=== PATIENT | female | born 1980 | race American Indian/Alaskan Native ===

== ENCOUNTER 2022-07-24 22:04 | Emergency (ER) | payer OTHER ==
[2022-07-25] MEDS ORDERED: dexAMETHasone 20 MG/5 ML VIAL IV ONE (07:57)
[2022-07-25] MEDS ORDERED: METOCLOPRAMIDE 10 MG/2 ML INJ IV ONE (07:57)
[2022-07-25] MEDS ORDERED: SODIUM CHLORIDE 0.9% 1000 ML 1,000 ML IV ONE (07:57)
[2022-07-25] MEDS ORDERED: diphenhydrAMINE 50 MG/ML VIAL IV ONE (07:57)
[2022-07-25 08:49] LABS: Hematocrit 36.8 % (30.3-42.9); Hemoglobin 11.8 gm/dl (10.1-14.3); Mean Corpuscular HGB Conc 32 % (30-34); Platelet Count 331 K/mm3 (140-440); Red Blood Count 5.27 M/mm3 (3.65-5.03); Red Cell Distribution Width 17.5 % (13.2-15.2)
[2022-07-25 08:50] LABS: Mean Corpuscular Volume 70 fl (79-97)
[2022-07-25 09:15] LABS: Alanine Aminotransferase 12 units/L (7-56); Albumin 4.7 g/dL (3.9-5); BUN/Creatinine Ratio 13; Blood Urea Nitrogen 10 mg/dL (7-17); Calcium 9.3 mg/dL (8.4-10.2); Hemolysis Index 10
[2022-07-25 09:56] LABS: Mucus,Urine FEW /HPF; RBC,Urine < 1.0 /HPF (0.0-6.0); WBC,Urine < 1.0 /HPF (0.0-6.0)
[2022-07-25 09:59] LABS: Color,Urine Straw (Yellow)
[2022-07-25] MEDS ORDERED: BUTALB/ACETAMINOPHEN/CAFFEINE TAB PO ONE (10:55)
[2022-07-25] MEDS ORDERED: PROCHLORPERAZINE EDISYLATE 10 MG/2 ML VIAL IV ONE (10:55)
--- NOTE | 2022-07-25 10:56 | Emergency Department Report ---
ED Headache HPI - General Chief Complaint: Dizziness Stated Complaint: LIGHT HEADED/DIZZINESS Time Seen by Provider: 07/25/22 07:12 - History of Present Illness Initial Comments: 42-year-old black female with a past medical history of sickle cell disease, Mjplj-[id number] status post ablation, and asthma presents to the emergency department for evaluation of 3-day history of headache with intermittent dizziness and nausea and vomiting. She states that symptoms are worse when she is lying down. She states that she took a home COVID test but it was negative. She states that headache at its worst is 7 out of 10. She denies vision changes and photophobia. Patient also states that she has been having generalized body aches and thinks that she may be going into a sickle cell crisis. Timing/Duration: other (4 days) Quality: moderate Head Injury Location: frontal Associated Symptoms: nausea/vomiting. denies: fatigue, facial pain, fever/chills, flushing, loss of consciousness, nasal congestion, nasal drainage, numbness in legs/feet, rash, seizures, sinus infection, stiff neck, vision changes, weakness Allergies/Adverse Reactions: Allergies aspirin Allergy (Verified 07/25/22 00:06) Unknown butorphanol [From Stadol] Allergy (Verified 07/25/22 00:06) Unknown ketorolac [From Toradol] Allergy (Verified 07/25/22 00:06) Unknown latex Allergy (Verified 07/25/22 00:06) Unknown Home Medications: Ambulatory Orders Acetaminophen/Codeine [Tylenol /Codeine # 3 tab] 1 tab PO Q6H PRN #12 tab 07/25/22 ED Review of Systems ROS: Stated complaint: LIGHT HEADED/DIZZINESS Other details as noted in HPI Comment: All other systems reviewed and negative Constitutional: denies: chills, fever, malaise, weakness Eyes: denies: eye pain, eye discharge, vision change ENT: denies: ear pain, throat pain, dental pain, congestion Respiratory: denies: cough, shortness of breath, SOB with exertion, SOB at rest, stridor, wheezing Cardiovascular: denies: chest pain, palpitations Gastrointestinal: nausea, vomiting. denies: abdominal pain, diarrhea, hemat emesis, melena, hematochezia Genitourinary: denies: urgency, dysuria Musculoskeletal: myalgia. denies: back pain Skin: denies: rash, lesions Neurological: headache. denies: weakness, numbness, paresthesias, confusion, abnormal gait, vertigo ED Past Medical Hx - Past Medical History Previous Medical History?: Yes Hx Sickle Cell Disease: Yes Hx Asthma: Yes Additional medical history: WPW WITH ABLASION - Surgical History Past Surgical History?: No - Social History Smoking Status: Never Smoker Substance Use Type: None - Medications Home Medications: Home Medications Medication Instructions Recorded Confirmed Last Taken Type Acetaminophen/Codeine [Tylenol 1 tab PO Q6H PRN #12 tab 07/25/22 Unknown Rx /Codeine # 3 tab] ED Physical Exam - General Limitations: No Limitations General appearance: alert, in no apparent distress - Head Head exam: Present: atraumatic, normocephalic - Eye Eye exam: Present: normal appearance. Absent: conjunctival injection, periorbital swelling, periorbital tenderness - ENT ENT exam: Absent: normal exam (Bilateral nasal mucosal edema), normal orophraynx (Erythema noted to posterior oropharynx) - Neck Neck exam: Present: normal inspection, full ROM. Absent: tenderness, lymphadenopathy - Respiratory Respiratory exam: Present: normal lung sounds bilaterally. Absent: respiratory distress, wheezes, rales, rhonchi, stridor, chest wall tenderness - Cardiovascular Cardiovascular Exam: Present: regular rate, normal heart sounds - GI/Abdominal GI/Abdominal exam: Present: soft, normal bowel sounds. Absent: distended, tenderness, guarding, rebound, rigid - Extremities Exam Extremities exam: Present: normal inspection, full ROM, normal capillary refill. Absent: tenderness, pedal edema, joint swelling, calf tenderness - Back Exam Back exam: Present: normal inspection. Absent: CVA tenderness (R), CVA tenderne ss (L) - Neurological Exam Neurological exam: Present: alert, oriented X3, CN II-XII intact, normal gait - Expanded Neurological Exam Expanded Patient oriented to: Present: person, place, time Speech: Present: fluid speech Cranial nerves: EOM's Intact: Normal, Gag Reflex: Normal, Tongue Deviation: Normal Ataxia: Absent: yes Cerebellar function: Romberg: Normal Sensory exam: Upper Extremity Light Touch: Normal, Upper Extremity Temperature: Normal, Lower Extremity Light Touch: Normal, Lower Extremity Temperature: Normal Motor strength exam: RUE: 5, LUE: 5, RLE: 5, LLE: 5 Best Eye Response (Sparkman): (4) open spontaneously Best Motor Response (Sparkman): (6) obeys commands Best Verbal Response (Damaris): (5) oriented Sparkman Total: 15 - Psychiatric Psychiatric exam: Present: normal affect, normal mood - Skin Skin exam: Present: warm, dry, intact, normal color ED Course Vital Signs 07/24/22 07/25/22 07/25/22 23:33 03:17 09:57 Temperature 98.8 F 98.3 F Pulse Rate 79 57 L Respiratory 18 18 Rate Blood Pressure 154/95 144/93 Blood Pressure [Right] O2 Sat by Pulse 100 99 99 Oximetry 07/25/22 11:25 Temperature 98.3 F Pulse Rate 88 Respiratory 18 Rate Blood Pressure Blood Pressure 124/78 [Right] O2 Sat by Pulse 100 Oximetry - Reevaluation(s) Reevaluation #1: 07/25/22 10:55 Patient states that headache only minimally improved. Nausea not improved, patient states that she refuses Reglan secondary to palpitations and the last time that she took it. ED Medical Decision Making - Lab Data Result diagrams: 07/25/22 08:30 07/25/22 08:30 - Medical Decision Making 42-year-old black female with a past medical history of sickle cell disease, [id number]-Zakrv status post ablation, and asthma presents to the emergency department for evaluation of 3-day history of headache with intermittent dizziness and nausea and vomiting. She states that symptoms are worse when she is lying down. She states that she took a home COVID test but it was negative. She states that headache at its worst is 7 out of 10. She denies vision changes and photophobia. Patient also states that she has been having generalized body aches and thinks that she may be going into a sickle cell crisis. Physical exam unremarkable. Work-up unremarkable. Patient with some improvement in headache and body aches. She will be discharged home to follow- up with her primary care provider and advised to return to the emergency department for any worsening symptoms. She verbalizes understanding of and agreement with plan of care. Critical care attestation.: If time is entered above; I have spent that time in minutes in the direct care of this critically ill patient, excluding procedure time. ED Disposition Clinical Impression: Myalgia Headache Qualifiers: Headache type: unspecified Headache chronicity pattern: acute headache Intractability: not intractable Qualified Code(s): R51.9 - Headache, unspecified Disposition: 01 HOME / SELF CARE / HOMELESS Is pt being admited?: No Does the pt Need Aspirin: No Condition: Stable Instructions: Musculoskeletal Pain, General Headache Without Cause, [id number] Additional Instructions: Take medications as prescribed. Increase intake of noncaffeinated fluids. Follow-up with your primary care provider if worsening symptoms or return to the emergency department as needed. Prescriptions: Acetaminophen/Codeine [Tylenol /Codeine # 3 tab] 1 tab PO Q6H PRN #12 tab PRN Reason: Pain, Moderate (4-6) Referrals: MILIND PEREZ MD [Primary Care Provider] - 3-5 Days Forms: Work/School Release Form(ED) Time of Disposition: 12:45
[2022-07-25 11:31] VITALS: BP 124/78
[2022-07-25] MEDS ORDERED: oxyCODONE /ACETAMINOPHEN 5-325MG TAB PO ONE (12:25)
== END 2022-07-25 12:56 | disposition home or self-care (01) ==
LOC: EDBD → ED 22:04
DX: M79.10 Myalgia, unspecified site (principal); R51.9 Headache, unspecified; J45.909 Unspecified asthma, uncomplicated
CPT/HCPCS: 36415; 80053; 81001; 83690; 84703; 85027; 85045; 96361; 96374; 96375; 99283; J0780; J1100; J1200; J2765; J7030